=== PATIENT | male | born 1990 | race Caucasian/White ===

== ENCOUNTER 2016-09-17 00:06 | Emergency (ER) | payer OTHER ==
[~2016-09-17] VITALS: Ht 172.7 cm; Wt 68.0 kg
[2016-09-17] MEDS ORDERED: LORAZEPAM 2 MG/1 ML VIAL IM ONE (00:15)
[2016-09-17] MEDS ORDERED: HALOPERIDOL LACTATE 5 MG/1 ML VIAL IM ONE (00:15)
[2016-09-17] MEDS ORDERED: IV NORMAL SALINE 1000 ML BAG IV ONE (00:15)
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
[2016-09-17] MEDS ORDERED: HALOPERIDOL LACTATE 5 MG/1 ML VIAL ONE (00:25)
[2016-09-17] MEDS ORDERED: LORAZEPAM 2 MG/1 ML VIAL ONE (00:25)
[2016-09-17 00:35] LABS: BASOPHILS # (AUTO) 0.1 K/uL (0.0-8.0); BASOPHILS % (AUTO) 0.5 % (0.0-2.0); EOSINOPHILS # (AUTO) 0.2 K/uL (0.0-0.7); EOSINOPHILS % (AUTO) 1.9 % (0.0-7.0); HEMATOCRIT 47.1 % (40-50); HEMOGLOBIN 16.1 G/DL (14.0-18.0); LYMPHOCYTES # (AUTO) 4.7 K/UL (0.8-4.8); LYMPHOCYTES % (AUTO) 41.2 % (20.5-51.5); MEAN CORPUSCULAR HEMOGLOBIN 28.5 UUG (27.0-31.0); MEAN CORPUSCULAR HGB CONC 34 g/dL (32.0-37.0); MEAN CORPUSCULAR VOLUME 83.4 FL (82.0-92.0); MONOCYTES % (AUTO) 8.6 % (0.0-11.0); NEUTROPHILS # (AUTO) 5.5 K/UL (1.8-8.9); NEUTROPHILS % (AUTO) 47.8 % (38.5-71.5); PLATELET COUNT (AUTO) 271 K/UL (150-450); RED BLOOD CELL COUNT(AUTO) 5.65 MIL/UL (4.7-6.1); WHITE BLOOD COUNT (AUTO) 11.5 K/UL (4.0-11.2)
--- NOTE | 2016-09-17 00:35 | NUR ---
pts girlfriend sitting at bedside...
[2016-09-17 00:36] LABS: CARBON DIOXIDE 23 mmol/L (21-32); CHLORIDE 103 mmol/L (98-107); GLUCOSE 126 mg/dL (74-106); POTASSIUM 3.1 mmol/L (3.5-5.1); UREA NITROGEN, BLOOD 15 mg/dL (7-18)
[2016-09-17 00:41] LABS: ETHANOL < 3 MG/DL (0-0)
[2016-09-17 00:42] LABS: ALANINE AMINOTRANSFERASE 22 U/L (16-63); ALKALINE PHOSPHATASE 121 U/L (50-136); ASPARTATE AMINOTRANSFERASE 22 U/L (15-37); BILIRUBIN,DIRECT 0.1 mg/dL (0.0-0.2); BILIRUBIN,TOTAL 0.5 mg/dL (0.2-1.0); TOTAL PROTEIN, SERUM 8.5 g/dL (6.4-8.2)
[2016-09-17 00:46] LABS: ACETAMINOPHEN < 2.0 ug/mL (10-30)
[2016-09-17 00:50] LABS: THYROID STIMULATING HORMONE 3.015 mIU/mL (0.358-3.740)
[2016-09-17 01:09] LABS: *BILIRUBIN,URIN NEGATIVE (NEGATIVE); *BLOOD, URINE Trace-intact (NEGATIVE); *CLARITY,URINE CLEAR (CLEAR); *COLOR,URINE YELLOW (YELLOW); *KETONES,URINE NEGATIVE (NEGATIVE); *PROTEIN,URINE NEGATIVE (NEGATIVE); *UROBILINOGEN,URINE 0.2 E.U./dl (NORMAL); LEUKOCYTE ESTERASE ,URINE NEGATIVE (NEGATIVE); NITRITE, URINE NEGATIVE (NEGATIVE); UGLUCOSE NEGATIVE (NEGATIVE)
[2016-09-17 01:15] LABS: *AMPHETAMINE, URINE NEGATIVE (NEGATIVE); *BARBITURATE, URINE NEGATIVE (NEGATIVE); *CANNABINOID, URINE NEGATIVE (NEGATIVE); *COCCAINE, URINE NEGATIVE (NEGATIVE); *OPIATE, URINE NEGATIVE (NEGATIVE); *PHENCYCLIDINE SCREEN,URINE NEGATIVE (NEGATIVE); BACTERIA,URINE FEW /HPF (NONE SEEN); SQUAMOUS EPITHELIAL CELL,UR FEW /HPF (NONE SEEN); WBC,URINE 0-3 /HPF (0-3)
--- NOTE | 2016-09-17 02:15 | NUR ---
PT RELEASED FROM RESTRAINTS DUE TO PTS BEHAVIOR HAS STABILIZED... PT CONTINUES SLEEPING... WILL CONTINUE TO MONITOR FOR SAFETY, PAIN AND COMFORT...
--- NOTE | 2016-09-17 03:30 | NUR ---
PT REMAINS SLEEPING, AROUSABLE TO NAME, WILL CONTINUE TO MONITOR FOR SAFETY, PAIN, AND COMFORT...
--- NOTE | 2016-09-17 05:00 | NUR ---
PT REMAINS SLEEPING, AROUSABLE TO NAME, OFFERED BATHROOM, FOOD AND DRINK, PT REFUSED... WILL CONTINUE TO MONITOR FOR SAFETY, PAIN AND COMFORT...
--- NOTE | 2016-09-17 06:00 | NUR ---
Patient discharged to home in stable conditon. Written and verbal after care instructions given. Patient verbalizes understanding of instructions. Pt walked out of ER unassisted with girlfriend and belongings at side...
[2016-09-17 06:09] VITALS: BP 129/67
== END 2016-09-17 06:10 | disposition home or self-care (01) ==
LOC: ER 00:11
DX: R41.82 Altered mental status, unspecified (principal)
CPT/HCPCS: 36415; 70030-TC; 71010; 80307; 84443; 85025; 85730; A4663; G0480; G0480-TC; J1630; J2060; J7030